=== PATIENT | female | born 1965 | race American Indian/Alaskan Native ===

== ENCOUNTER 2017-01-20 12:34 | Inpatient (IN) | payer OTHER ==
[2017-01-20 13:16] LABS: Basophils % (Auto) 0.9 % (0.0-1.8); Eosinophils % (Auto) 2.6 % (0.0-4.3); Hematocrit 40.4 % (30.3-42.9); Hemoglobin 13.6 gm/dl (10.1-14.3); Mean Corpuscular HGB Conc 34 % (30-34); Mean Corpuscular Hemoglobin 28 pg (28-32); Mean Corpuscular Volume 83 fl (79-97); Platelet Count 334 K/mm3 (140-440); Red Blood Count 4.88 M/mm3 (3.65-5.03); Red Cell Distribution Width 14.6 % (13.2-15.2); White Blood Count 6.3 K/mm3 (4.5-11.0)
[2017-01-20 13:26] LABS: INR 0.95 (0.87-1.13)
[2017-01-20 13:34] LABS: Anion Gap 16 mmol/L; BUN/Creatinine Ratio 18.33; Blood Urea Nitrogen 11 mg/dL (7-17); Calcium 9.3 mg/dL (8.4-10.2); Carbon Dioxide 30 mmol/L (22-30); Chloride 96.2 mmol/L (98-107); Glucose 288 mg/dL (65-100); Potassium 3.8 mmol/L (3.6-5.0); Sodium 138 mmol/L (137-145)
[2017-01-20 13:56] LABS: Partial Thromboplastin Time 26.5 Sec. (24.2-36.6)
--- NOTE | 2017-01-20 16:05 | XRay Report ---
CHEST 2 VIEWS INDICATION: Chest pain. COMPARISON: None similar. FINDINGS: PA and lateral chest radiographs demonstrate normal cardiomediastinal silhouette and clear lungs, given the inspiration. Mild mid thoracic spine degenerative spurring. Possible cholecystectomy clips. Right hemidiaphragm slightly elevated. CONCLUSION: No acute disease in the chest. Thank you for the opportunity to participate in this patient's care.
[2017-01-20] MEDS ORDERED: TYLENOL PO ONE (18:17)
--- NOTE | 2017-01-21 02:05 | Emergency Department Report ---
ED Chest Pain HPI - General Chief Complaint: Chest Pain Stated Complaint: CHEST PAIN Time Seen by Provider: 01/21/17 01:35 Source: patient Mode of arrival: Ambulatory Limitations: No Limitations - History of Present Illness Initial Comments: 51-year-old female with a past medical history CAD with stent 3 placed in 2011 and hypertension presents to the hospital with complaints of left-sided chest pain 5 days. Symptoms started after to date. Of vomiting and by mouth intolerance. Patient states she ate some bad food. She denies abdominal pain or diarrhea. Pain is left upper portion of the chest and radiates to left shoulder and described as a spasm type of feeling. Pain is rated 8/10 intensity without any specific aggravating or alleviating factors. Patient denies shortness of breath or diaphoresis, calf tenderness, or edema. Patient states when she was diagnosed with CAD requiring stents and 2011 her primary symptoms were fatigue and diaphoresis. Patient came to the ER today because she was experiencing generalized weakness and fatigue. 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 [place] Severity scale (0 -10): 8 - Related Data Home Medications Medication Instructions Recorded Confirmed Last Taken Atenolol/Chlorthalidone [Tenoretic 1 tab PO QDAY 05/11/15 05/11/15 05/11/15 100-25] Metoprolol [Lopressor TAB] 50 mg PO BID 05/11/15 05/11/15 05/11/15 Simvastatin [Zocor TAB] 20 mg PO QHS 05/11/15 05/11/15 Unknown amLODIPine [Norvasc] 5 mg PO DAILY 05/11/15 05/11/15 05/11/15 Previous Rx's Medication Instructions Recorded Last Taken Type Cyclobenzaprine [Flexeril 10 MG 10 mg PO TID PRN #30 tablet 05/12/15 Unknown Rx TAB] HYDROcodone/APAP 5-325 [Muir 1 each PO Q6HR PRN #20 tablet 05/12/15 Unknown Rx 5/325] Ibuprofen [Motrin] 600 mg PO Q8H PRN #50 tablet 05/12/15 Unknown Rx Allergies Allergy/AdvReac Type Severity Reaction Status Date / Time No Known Allergies Allergy Verified 05/12/15 06:16 Heart Score - HEART Score History: Slightly suspicious EKG: Normal Age: 45-65 Risk factors: > 3 risk factors or hx of atherosclerotic disease Troponin: < normal limit HEART Score: 3 ED Review of Systems ROS: Stated complaint: CHEST PAIN Other details as noted in HPI Comment: All other systems reviewed and negative Other: Constitutional: No fevers chills Eyes: No eye pain visual changes or discharge ENT: No ear pain or throat pain Neck: Denies pain Respiratory: Denies cough wheezing shortness of breath Cardiovascular: Denies palpitations, syncope GI: Denies abdominal pain, diarrhea : Denies dysuria Musculoskeletal: Denies back pain, joint swelling Skin: Denies rash, lesions, erythema Neurologic: Denies headache, numbness, weakness Psychiatric: Denies suicidal ideation, hallucinations ED Past Medical Hx - Past Medical History Previous Medical History?: Yes Hx Hypertension: Yes Hx Heart Attack/AMI: Yes (3 stents 2011) - Surgical History Past Surgical History?: Yes Hx Cholecystectomy: Yes Additional Surgical History: Stents 2011 PCI - Social History Smoking Status: Never Smoker Substance Use Type: None - Medications Home Medications: Home Medications Medication Instructions Recorded Confirmed Last Taken Type Atenolol/Chlorthalidone [Tenoretic 1 tab PO QDAY 05/11/15 05/11/15 05/11/15 History 100-25] Metoprolol [Lopressor TAB] 50 mg PO BID 05/11/15 05/11/15 05/11/15 History Simvastatin [Zocor TAB] 20 mg PO QHS 05/11/15 05/11/15 Unknown History amLODIPine [Norvasc] 5 mg PO DAILY 05/11/15 05/11/15 05/11/15 History Cyclobenzaprine [Flexeril 10 MG 10 mg PO TID PRN #30 tablet 05/12/15 Unknown Rx TAB] HYDROcodone/APAP 5-325 [[place] 1 each PO Q6HR PRN #20 tablet 05/12/15 Unknown Rx 5/325] Ibuprofen [Motrin] 600 mg PO Q8H PRN #50 tablet 05/12/15 Unknown Rx ED Physical Exam - General Limitations: No Limitations - Other Other exam information: General: No limitations, patient is alert in no acute distress Head exam: Atraumatic, normocephalic Eyes exam: Normal appearance, pupils equal reactive to light, extraocular movements intact ENT: Moist mucous membrane, normal oropharynx Neck exam: Normal inspection, full range of motion, no meningismus nontender Respiratory exam: Clear to auscultation bilateral, no wheezes, rales, crackles Cardiovascular: Normal rate and rhythm, normal heart sounds, chest wall nontender Abdomen: Soft, nondistended, and nontender, with normal bowel sounds, no rebound, or guarding Extremity: Full range of motion normal inspection no deformity Back: Normal Inspection, full range of motion, no tenderness Neurologic: Alert, oriented x3, cranial nerves intact, no motor or sensory deficit Psychiatric: normal affect, normal mood Skin: Warm, dry, intact ED Course Vital Signs 01/20/17 01/20/17 01/20/17 12:45 18:20 20:14 Temperature 98.5 F Pulse Rate 73 Respiratory 16 18 Rate Blood Pressure 161/101 O2 Sat by Pulse 100 99 Oximetry 01/20/17 01/20/17 01/20/17 20:21 20:30 20:41 Temperature Pulse Rate 54 L 51 L 55 L Respiratory 17 17 15 Rate Blood Pressure 157/80 137/81 137/81 O2 Sat by Pulse 98 99 99 Oximetry 01/20/17 01/20/17 01/20/17 20:51 21:00 21:10 Temperature 97.8 F Pulse Rate 53 L 48 L 57 L Respiratory 15 17 15 Rate Blood Pressure 137/81 137/81 139/89 O2 Sat by Pulse 100 97 99 Oximetry 01/20/17 01/20/17 01/20/17 21:21 21:30 21:41 Temperature Pulse Rate 54 L 67 65 Respiratory 19 19 19 Rate Blood Pressure 139/89 152/86 152/86 O2 Sat by Pulse 99 100 99 Oximetry 01/20/17 01/20/17 01/20/17 21:51 22:00 22:11 Temperature Pulse Rate 58 L 56 L 58 L Respiratory 16 20 17 Rate Blood Pressure 152/86 140/77 140/77 O2 Sat by Pulse 99 97 98 Oximetry 01/20/17 01/20/17 01/20/17 22:20 22:30 22:41 Temperature Pulse Rate 57 L 55 L 54 L Respiratory 17 18 16 Rate Blood Pressure 139/89 141/82 141/82 O2 Sat by Pulse 99 98 99 Oximetry 01/20/17 01/20/17 01/20/17 22:51 23:00 23:11 Temperature Pulse Rate 56 L 57 L 75 Respiratory 25 H 18 15 Rate Blood Pressure 141/82 134/80 134/80 O2 Sat by Pulse 97 96 98 Oximetry 01/20/17 01/20/17 01/21/17 23:35 23:56 00:00 Temperature Pulse Rate Respiratory Rate Blood Pressure 134/80 134/80 134/80 O2 Sat by Pulse 87 Oximetry 01/21/17 00:21 Temperature Pulse Rate Respiratory Rate Blood Pressure 134/80 O2 Sat by Pulse Oximetry - Reevaluation(s) Reevaluation #1: 01/21/17 02:16 Zofran, Toradol, and normal saline ordered. Insulin also ordered due to hyperglycemia 01/21/17 02:23 Insulin also ordered due to hyperglycemia. Hemoglobin A1c pending LOLIS score - Lolis Score Age > 65: (0) No Aspirin use within the Past 7 Days: (1) Yes 3 or more CAD Risk Factors: (1) Yes 2 or more Angina events in past 24 hrs: (1) Yes Known CAD with more than 50% Stenosis: (1) Yes Elevated Cardiac Markers: (0) No ST Deviation Greater than 0.5mm: (0) No LOLIS Score: 4 ED Medical Decision Making - Lab Data Result diagrams: 01/20/17 13:05 01/20/17 13:05 Lab Results 01/20/17 01/20/17 01/20/17 Range/Units 13:05 13:05 13:05 WBC 6.3 (4.5-11.0) K/mm3 RBC 4.88 (3.65-5.03) M/mm3 Hgb 13.6 (10.1-14.3) gm/dl Hct 40.4 (30.3-42.9) % MCV 83 (79-97) fl MCH 28 (28-32) pg MCHC 34 (30-34) % RDW 14.6 (13.2-15.2) % Plt Count 334 (140-440) K/mm3 Lymph % (Auto) 47.4 H (13.4-35.0) % [place] % (Auto) 5.9 (0.0-7.3) % Eos % (Auto) 2.6 (0.0-4.3) % Baso % (Auto) 0.9 (0.0-1.8) % Lymph # 3.0 (1.2-5.4) K/mm3 [place] # 0.4 (0.0-0.8) K/mm3 Eos # 0.2 (0.0-0.4) K/mm3 Baso # 0.1 (0.0-0.1) K/mm3 Seg Neutrophils % 43.2 (40.0-70.0) % Seg Neutrophils # 2.7 (1.8-7.7) K/mm3 PT 12.6 (12.2-14.9) Sec. INR 0.95 (0.87-1.13) APTT 26.5 (24.2-36.6) Sec. Sodium 138 (137-145) mmol/L Potassium 3.8 (3.6-5.0) mmol/L Chloride 96.2 L (98-107) mmol/L Carbon Dioxide 30 (22-30) mmol/L Anion Gap 16 mmol/L BUN 11 (7-17) mg/dL Creatinine 0.6 L (0.7-1.2) mg/dL Estimated GFR > 60 ml/min BUN/Creatinine Ratio 18.33 % Glucose 288 H (65-100) mg/dL Calcium 9.3 (8.4-10.2) mg/dL Troponin T < 0.010 (0.00-0.029) ng/mL HCG, Qual (Negative) 01/20/17 01/20/17 01/20/17 Range/Units 13:05 16:38 19:55 WBC (4.5-11.0) K/mm3 RBC (3.65-5.03) M/mm3 Hgb (10.1-14.3) gm/dl Hct (30.3-42.9) % MCV (79-97) fl MCH (28-32) pg MCHC (30-34) % RDW (13.2-15.2) % Plt Count (140-440) K/mm3 Lymph % (Auto) (13.4-35.0) % [place] % (Auto) (0.0-7.3) % Eos % (Auto) (0.0-4.3) % Baso % (Auto) (0.0-1.8) % Lymph # (1.2-5.4) K/mm3 [place] # (0.0-0.8) K/mm3 Eos # (0.0-0.4) K/mm3 Baso # (0.0-0.1) K/mm3 Seg Neutrophils % (40.0-70.0) % Seg Neutrophils # (1.8-7.7) K/mm3 PT (12.2-14.9) Sec. INR (0.87-1.13) APTT (24.2-36.6) Sec. Sodium (137-145) mmol/L Potassium (3.6-5.0) mmol/L Chloride (98-107) mmol/L Carbon Dioxide (22-30) mmol/L Anion Gap mmol/L BUN (7-17) mg/dL Creatinine (0.7-1.2) mg/dL Estimated GFR ml/min BUN/Creatinine Ratio % Glucose (65-100) mg/dL Calcium (8.4-10.2) mg/dL Troponin T < 0.010 < 0.010 (0.00-0.029) ng/mL HCG, Qual Negative (Negative) - EKG Data -: EKG Interpreted by Me (nsr rate 65, LVH) - EKG Data When compared to previous EKG there are: no significant change (compared to 11/03) - Radiology Data Radiology results: image reviewed (cxr: naf) - Medical Decision Making Clinically patient's pain appears to be secondary to muscle spasm however pain is not reproducible on palpation patient has several cardiac risk factors. Patient admitted to the hospital for further monitoring and stress test. Patient also has elevated glucose. Hemoglobin A1c ordered and pending at disposition. - Differential Diagnosis GERD, ID, atypical chest pain, muscle spasm Critical Care Time: No Critical care attestation.: If time is entered above; I have spent that time in minutes in the direct care of this critically ill patient, excluding procedure time. ED Disposition Clinical Impression: Chest pain, Vomiting, Hx of heart artery stent, Elevated glucose Disposition: OP ADMIT IP TO THIS HOSP Is pt being admited?: Yes Does the pt Need Aspirin: No Time of Disposition: 02:10 (DR ochoa/hosp)
[2017-01-21] MEDS ORDERED: TORADOL IV ONE (02:12)
[2017-01-21] MEDS ORDERED: NACL 0.9% 1000 ML 1,000 ML IV ONE (02:12)
[2017-01-21] MEDS ORDERED: ZOFRAN IV ONE (02:12)
[2017-01-21] MEDS ORDERED: TYLENOL PO PRN (08:25)
[2017-01-21] MEDS ORDERED: MILK OF MAGNESIA PO PRN (08:25)
[2017-01-21] MEDS ORDERED: ZOFRAN IV PRN (08:25)
[2017-01-21] MEDS ORDERED: DULCOLAX PR PRN (08:25)
[2017-01-21] MEDS ORDERED: LEXISCAN IV ONE ×2 (08:44→08:46)
[2017-01-21] MEDS ORDERED: NOVOLOG SUB-Q SCH (10:00)
[2017-01-21] MEDS: HCTZ PO SCH (11:52)
[2017-01-21] MEDS: COZAAR PO SCH (11:52)
[2017-01-21] MEDS: LOPRESSOR PO SCH ×2 (11:53→22:23)
[2017-01-21] MEDS: NORVASC PO SCH (11:53)
--- NOTE | 2017-01-21 12:27 | Consultation ---
History of Present Illness Consult date: 01/21/17 Consult reason: chest pain History of present illness: 51 YO woman with h/o htn, DM, and CAD s/p PCI in 2011 who presented to ED with episodes of left sided pressure type chest pain with associated dyspnea and diaphoresis. She reports symptoms initially started several days ago after she developed dyspepsia and vomiting. Chest pain has persisted even after dyspepsia has resolved. She has not had any palpitations, syncope, or pre- syncope. She is normally followed by a medical csr in [facility]. She does not think she has had coronary angiogram since her PCI in 2011. ECG today reveals sinus bradycardia at 55 bpm with borderline LVH. GA has been ruled out with negative cardiac enzymes. MPI today preliminarily reveals reversible inferior perfusion defect. Past History Past Medical History: CAD, diabetes, hypertension, hyperlipidemia Past Surgical History: PTCA Social history: denies: smoking, alcohol abuse Family history: no significant family history Medications and Allergies Allergies Allergy/AdvReac Type Severity Reaction Status Date / Time No Known Allergies Allergy Verified 05/12/15 06:16 Home Medications Medication Instructions Recorded Confirmed Last Taken Type Metoprolol [Lopressor TAB] 50 mg PO BID 05/11/15 01/21/17 05/11/15 History amLODIPine [Norvasc] 10 mg PO DAILY 05/11/15 01/21/17 05/11/15 History AtorvaSTATin [Lipitor] 20 mg PO QHS 01/21/17 01/21/17 Unknown History Losartan/Hydrochlorothiazide 1 each PO DAILY 01/21/17 01/21/17 Unknown History [Losartan-Hctz 100-25 mg Tab] Active Meds: Active Medications Acetaminophen (Tylenol) 650 mg PO Q4H PRN PRN Reason: Pain MILD(1-3)/Fever >100.5/SNOW Amlodipine Besylate (Norvasc) 10 mg PO DAILY [facility] Last Admin: 01/21/17 11:53 Dose: 10 mg Atorvastatin Calcium (Lipitor) 20 mg PO QHS [facility] Bisacodyl (Dulcolax) 10 mg PA QDAY PRN PRN Reason: Constipation unrelieved by MOM Heparin Sodium (Porcine) (Heparin) 5,000 unit SUB-Q Q8HR [facility] Hydrochlorothiazide (Hctz) 12.5 mg PO DAILY [facility] Last Admin: 01/21/17 11:52 Dose: 12.5 mg Sodium Chloride (Nacl 0.45% 1000 Ml) 1,000 mls @ 75 mls/hr IV DIRECT [facility] Insulin Aspart (Novolog) 0 units SUB-Q ONCE [facility] PRN Reason: Protocol Losartan Potassium (Cozaar) 100 mg PO DAILY [facility] Last Admin: 01/21/17 11:52 Dose: 100 mg Magnesium Hydroxide (Milk Of Magnesia) 30 ml PO Q4H PRN PRN Reason: Constipation Metoprolol Tartrate (Lopressor) 50 mg PO BID [facility] Last Admin: 01/21/17 11:53 Dose: 50 mg Ondansetron HCl (Zofran) 4 mg IV Q8H PRN PRN Reason: N/V unrelieved by Reglan Review of Systems All systems: negative (per hpi) Physical Examination Vital Signs Temp Pulse Resp BP Pulse Ox 98.5 F 73 16 161/101 100 01/20/17 12:45 01/20/17 12:45 01/20/17 12:45 01/20/17 12:45 01/20/17 12:45 General appearance: no acute distress Neck: Positive: neck supple Cardiac: Positive: Reg Rate and Rhythm. Negative: Audible Murmur Lungs: Positive: clear to auscultation Neuro: Positive: Grossly Intact Abdomen: Positive: Soft, Active Bowel Sounds Extremities: Absent: edema Results 01/20/17 13:05 01/20/17 13:05 Assessment and Plan Chest pain in patient with known CAD MPI preliminarily reveals reversible inferior perfusion defect. CAD s/p PCI in 2011 Htn DM Recommend: Continue current therapy including aspirin, statin and beta stephanie Plan for cardiac catheterization on monday.
--- NOTE | 2017-01-21 12:51 | History and Physical Report ---
History of Present Illness Date of examination: 01/21/17 Date of admission: 01/21/17 08:25 Chief complaint: Accelerated recurrent chest pain for the past 4-5 days History of present illness: 51-year-old -[place] female history of coronary artery disease status post PCI 4 years ago, history of hypertension and hyperlipidemia was seen in the emergency room with above complaint and she is admitted for further evaluation Symptoms started about 5 days ago when she had vomiting for 1 day which she suspected was due to some food related. Since then she has been having recurrent left-sided chest pain which lasts from a few seconds to a minute, mostly nonexertional, rash or leg pain and feels tired and exhausted after walking for a few minutes. She also complains of sweating and palpitations but denies any dizziness or loss of consciousness. She denies any fever or chills. Denies sore throat dysphagia nasal congestion or headaches Denies abdominal pain nausea hematemesis or melena She denies any dysuria or urinary incontinence or frequency Denies any stiff injury or seizure disorder She says she had SC 4 years ago and has 3 stents She normally sees M.D. in [place] She says she saw her PCP in [place] 3 months ago Past History Past Medical History: CAD, diabetes, hypertension, hyperlipidemia Past Surgical History: cholecystectomy, PTCA, Other (myomectomy for uterine fibroids) Social history: denies: smoking, alcohol abuse Family history: hypertension Medications and Allergies Allergies Allergy/AdvReac Type Severity Reaction Status Date / Time No Known Allergies Allergy Verified 05/12/15 06:16 Home Medications Medication Instructions Recorded Confirmed Last Taken Type Metoprolol [Lopressor TAB] 50 mg PO BID 05/11/15 01/21/17 05/11/15 History amLODIPine [Norvasc] 10 mg PO DAILY 05/11/15 01/21/17 05/11/15 History AtorvaSTATin [Lipitor] 20 mg PO QHS 01/21/17 01/21/17 Unknown History Losartan/Hydrochlorothiazide 1 each PO DAILY 01/21/17 01/21/17 Unknown History [Losartan-Hctz 100-25 mg Tab] Active Meds: Active Medications Acetaminophen (Tylenol) 650 mg PO Q4H PRN PRN Reason: Pain MILD(1-3)/Fever >100.5/SNOW Amlodipine Besylate (Norvasc) 10 mg PO DAILY [facility] Last Admin: 01/21/17 11:53 Dose: 10 mg Aspirin (Aspirin) 325 mg PO QDAY [facility] Atorvastatin Calcium (Lipitor) 20 mg PO QHS [facility] Bisacodyl (Dulcolax) 10 mg [place] QDAY PRN PRN Reason: Constipation unrelieved by [facility] Heparin Sodium (Porcine) (Heparin) 5,000 unit SUB-Q Q8HR [facility] Hydrochlorothiazide (Hctz) 12.5 mg PO DAILY [facility] Last Admin: 01/21/17 11:52 Dose: 12.5 mg Sodium Chloride (Nacl 0.45% 1000 Ml) 1,000 mls @ 75 mls/hr IV DIRECT [facility] Insulin Aspart (Novolog) 0 units SUB-Q ONCE [facility] PRN Reason: Protocol Losartan Potassium (Cozaar) 100 mg PO DAILY [facility] Last Admin: 01/21/17 11:52 Dose: 100 mg Magnesium Hydroxide (Milk Of Magnesia) 30 ml PO Q4H PRN PRN Reason: Constipation Metoprolol Tartrate (Lopressor) 50 mg PO BID [facility] Last Admin: 01/21/17 11:53 Dose: 50 mg Ondansetron HCl (Zofran) 4 mg IV Q8H PRN PRN Reason: N/V unrelieved by Reglan Review of Systems All systems: negative (as stated above in the history of present illness) Exam - Constitutional Vitals: Temp Pulse Resp BP Pulse Ox 97.8 F 60 18 156/92 100 01/20/17 21:10 01/21/17 11:52 01/21/17 06:00 01/21/17 11:52 01/21/17 06:00 General appearance: Present: no acute distress, well-nourished - EENT Eyes: Present: PERRL, EOM intact ENT: hearing intact, clear oral mucosa, no thrush - Neck Neck: Present: supple, normal ROM. Absent: masses or JVD - Respiratory Respiratory effort: normal Respiratory: bilateral: CTA - Cardiovascular Rhythm: regular Heart Sounds: Present: S1 & S2 - Extremities Extremities: No edema - Abdominal General gastrointestinal: Present: soft, non-tender. Absent: hepatomegaly, splenomegaly - Rectal Rectal Exam: deferred - Integumentary Integumentary: Present: clear - Musculoskeletal Musculoskeletal: strength equal bilaterally - Psychiatric Psychiatric: appropriate mood/affect - Neurologic Neurologic: CNII-XII intact, no focal deficits Results - Labs CBC & Chem 7: 01/20/17 13:05 01/20/17 13:05 Assessment and Plan - Patient Problems (1) Chest pain Current Visit: Yes Status: Acute Qualifiers: Chest pain type: C Ischemic chest pain type: stable angina pectoris Qualified Code(s): I20.8 - Other forms of angina pectoris Plan to address problem: SC was ruled out with 2 sets of troponin EKG shows sinus bradycardia with a heart rate of 57 bpm and borderline LVH Patient was scheduled for a Lexiscan just now I reviewed the Lexiscan results which showed reversible defect in the inferior portion Cardiology note reviewed and appreciated She is scheduled for left heart cath on Monday Continue aspirin, BB (2) Hypertension Current Visit: Yes Status: Chronic Qualifiers: Hypertension type: essential hypertension Qualified Code(s): I10 - Essential (primary) hypertension Plan to address problem: Home medications were reviewed and adjusted (3) Coronary artery disease Current Visit: Yes Status: Chronic Qualifiers: Coronary Disease-Associated Artery/Lesion type: [place] artery [place] vs. transplanted heart: [place] heart Associated angina: with stable angina Qualified Code(s): I25.118 - Atherosclerotic heart disease of [place] coronary artery with other forms of angina pectoris Plan to address problem: History of PCI four years ago with placement of 3 stents (4) Poorly controlled type 2 diabetes mellitus Current Visit: Yes Status: Chronic Plan to address problem: Although patient denies she has diabetes, this appears to be chronic with an A1c at 11. She states sometimes her sugars go up denies having diabetes or taking any medications Start on insulin sliding scale coverage for now (5) Hyperlipidemia Current Visit: Yes Status: Chronic Qualifiers: Hyperlipidemia type: mixed hyperlipidemia Qualified Code(s): E78.2 - Mixed hyperlipidemia Plan to address problem: Continue statin We will check her lipid profile
[2017-01-21] MEDS: HEPARIN SUB-Q SCH ×2 (14:11→22:23)
[2017-01-21] MEDS: NACL 0.45% 1000 ML 1,000 ML IV SCH (14:25)
--- NOTE | 2017-01-22 01:52 | Admit Criteria Form ---
Admission Criteria Documentation: CHEST PAIN Clinical Indications for Admission to Inpatient Care (Place 'X' for any and all applicable criteria): Admission is indicated for chest pain and ANY ONE of the following(1)(2)(3)(4)(5 ): [ ]I. Angina with acute coronary syndrome (Also use Myocardial Infarction or Angina guideline) [ ]II. Hemodynamic instability [ ]III. Angina needing acute intervention as indicated by ALL of the following( 11)(12): [ ]a) Unstable angina is present as indicated by angina that is ANY ONE of the following: [ ]i) New onset [ ]ii) Nocturnal [ ]iii) Prolonged at rest [ ]iv) Progressive [ ]b) Angina warrants acute intervention as indicated by ANY ONE of the following: [ ]i) Recurrent angina (e.g, not responding as previously to treatment) [ ]ii) Angina at rest or with low-level activities despite initial medical therapy [ ]iii) New or presumably new ST-segment depression on ECG [ ]iv) Signs or symptoms of heart failure (eg, dyspnea, pulmonary edema) [ ]v) New or worsening mitral regurgitation [ ]vi) Hemodynamic instability [ ]vii) Dangerous arrhythmia (eg, sustained ventricular tachycardia) [ ]viii) History of percutaneous coronary intervention within 6 months [ ]ix) History of coronary artery bypass graft surgery [ ]x) LOLIS risk score of 2 or greater[A] [ ]xi) History of Diabetes(14) [ ]xii) High-risk cardiac ischemia findings on noninvasive testing (e.g, echocardiogram, treadmill testing, nuclear scan) [ ]xiii) Chronic renal insufficiency (ie, estimated GFR less than 60 mL/min/1.732m) [ ]xiv) Left ventricular ejection fraction less than 40% [ ]IV. Evidence of PR (eg, cardiac biomarkers positive, ST-segment elevation on ECG) also use Myocardial Infarction Criteria Form. [ ]V. Pulmonary edema [ ]. Respiratory distress [ ]VII. Chest pain indicative of serious diagnosis other than coronary artery disease (eg, aortic dissection) [ ]VIII. Contraindications and/or Inappropriate clinical situations for Observational Care in patients with Chest Pain, when ANY ONE of the following is required: [ ]a) Patient with risk factor for pulmonary embolism, acute coronary syndrome and myocardial infarction (18) [ ]b) Patient with Pulmonary embolism require an average LOS of 4.3 days, therefore emergency department observation management is inappropriate 18,23 [ ]c) Painful condition/s in the elderly, have the highest rate of recidivism after emergency department observation management (10.8%) 20,21,22 [ ]d) Elevated cardiac biomarker requires intensive and exhaustive care (19) [X ]IX. General contraindications and/or Inappropriate clinical situations for Observational Care in patients with Chest Pain, when ANY ONE of the following is required: [X ]a) Prediction of prolongation of LOS based on ANY ONE of the following may be considered as a contraindication for observational care 2, 3, 4, 5, 6, 7, 8, 9, 10, 11 [ ]i) Age > 65 yrs. [ ]ii) Patient arriving by ambulance [ ]iii) Patient with high acuity [X ]iv) Patient requiring vital sign monitoring [X ]v) Patient on IV medication [ ]b) Systolic blood pressures 180mmHg 3,12 [ ]c) Patient with altered mental status including delirium and other alteration of consciousness, (3) [ ]d) Patient whose discharge disposition will be to a penitentiary home or rehabilitation home should not be managed in Emergency Department Observation Unit. CMS rule requires 3 days hospital stay before such placement. 3,13 [ ]e) Patient with failure to thrive due to broad array of etiologies 3,16,17 [ ]f) Inability to ambulate 3,14 Extended stay beyond goal length of stay may be needed for (1)(28): [ ]a) Specific condition diagnosed after evaluation (eg, pulmonary embolism, aortic dissection) [ ]b) Unstable angina [ ]c) Continued suspicion of acute coronary syndrome with inability to complete needed cardiac evaluation (eg, patient clinically unable to undergo stress testing) [ ]d) Myocardial infarction (Contents from ANGINA and CHEST PAIN clinical indications for admission to inpatient care have been integrated in this form) The original [employer] content created by [employer] has been revised. The portions of the content which have been revised are identified through the use of italic text or in bold, and [email or web address] has neither reviewed nor approved the modified material. All other unmodified content is copyright [employer]. Please see references footnoted in the original [facility] edition 2016 Admission Criteria Met: Yes
[2017-01-22] MEDS: NACL 0.45% 1000 ML 1,000 ML IV SCH (06:09)
[2017-01-22] MEDS: HEPARIN SUB-Q SCH ×3 (06:09→22:40)
[2017-01-22] MEDS: COZAAR PO SCH (11:53)
[2017-01-22] MEDS: NORVASC PO SCH (11:53)
[2017-01-22] MEDS: ASPIRIN PO SCH (11:54)
[2017-01-22] MEDS: LOPRESSOR PO SCH ×2 (11:54→22:40)
[2017-01-22] MEDS: HCTZ PO SCH (11:54)
--- NOTE | 2017-01-22 12:30 | Progress Note ---
Assessment and Plan Chest pain in patient with known CAD MPI preliminarily reveals reversible inferior perfusion defect. CAD s/p PCI in 2011 Htn DM Recommend: Continue current therapy including aspirin, statin and beta stephanie Plan for cardiac catheterization on monday. Subjective Date of service: 01/22/17 Interval history: No cardiac complaints. NO further chest pain Objective Vital Signs Temp Pulse Pulse Pulse Pulse Resp BP 01/22/17 09:57 98.3 F 63 63 63 20 01/22/17 04:51 98.2 F 60 60 60 20 01/22/17 01:05 98.1 F 61 20 01/22/17 01:00 60 01/21/17 22:23 60 139/89 01/21/17 20:26 98.7 F 60 20 01/21/17 18:13 98.8 F 69 20 01/21/17 15:40 57 L 20 BP BP Pulse Ox 01/22/17 09:57 129/77 97 01/22/17 04:51 161/92 99 01/22/17 01:05 165/94 97 01/22/17 01:00 01/21/17 22:23 01/21/17 20:26 139/89 99 01/21/17 18:13 156/92 95 01/21/17 15:40 159/95 98 - Physical Examination Neck: Positive: neck supple Cardiac: Positive: Reg Rate and Rhythm Lungs: Positive: clear to auscultation Neuro: Positive: Grossly Intact Abdomen: Positive: Soft, Active Bowel Sounds Extremities: Absent: edema - Labs and Meds Lipids 01/22/17 Range/Units 06:37 Triglycerides 192 H (2-149) mg/dL Cholesterol 141 (50-199) mg/dL HDL Cholesterol 35 L (40-59) mg/dL Cholesterol/HDL Ratio 4.02 %
[2017-01-22] MEDS ORDERED: NACL 0.9% 500 ML 500 ML IV SCH (13:00)
--- NOTE | 2017-01-22 16:11 | Progress Note ---
Assessment and Plan Assessment and plan: 51-year-old -[place] female history of coronary artery disease status post PCI 4 years ago, history of hypertension and hyperlipidemia was seen in the emergency room with above with chest pain. Per the patient symptoms started about 5 days ago with nausea and 1 day episode of vomiting. Chest pain is not exertional. He feels tired and exhausted but describes no abdominal pain. She reports recent dental infection. She also reports history of RI 4 years ago with 3 stents. She normally follows with her doctors in [place] was supposed to months ago. Patient on admission had a stress test which revealed stable inferior perfusion defect. Follow test reveals a hemoglobin A1c of 11 was a new diabetic diagnosis for this patient. * Chest pain in a patient with known CAD * Diabetes mellitus A1c of 11.5 * CAD status post PCI in 2011 * Hypertension * Dyslipidemia Plan * cardiac cath planned for the AM * Continue asa, BB, ARB, CCB, statin therapy * Will add 70/30 12 units BID and continue sliding scale coverage. Recommended podiatry and yearly eye exam * Follow with Dentist on discharge * DVT/GI prophy History Interval history: Patient seen and examined today reports improvement of her symptoms. Denies any chest pain, nausea vomiting or diarrhea. No other adverse event reported some staff. Hospitalist Physical - Physical exam Narrative exam: VITAL SIGNS: Reviewed. GENERAL: The patient appeared well nourished and normally developed. Vital signs as documented. HEAD: No signs of head trauma. EYES: Pupils are equal. Extraocular motions intact. EARS: Hearing grossly intact. MOUTH: Oropharynx is normal. NECK: No adenopathy, no JVD. CHEST: Chest with clear breath sounds bilaterally. No wheezes, rales, or rhonchi. CARDIAC: Regular rate and rhythm. S1 and S2, without murmurs, gallops, or rubs. VASCULAR: No Edema. Peripheral pulses normal and equal in all extremities. ABDOMEN: Soft, without detectable tenderness. No sign of distention. No rebound or guarding, and no masses palpated. Bowel Sounds normal. MUSCULOSKELETAL: Good range of motion of all major joints. Extremities without clubbing, cyanosis or edema. NEUROLOGIC EXAM: Alert and oriented x 3. No focal sensory or strength deficits. Speech normal. Follows commands. PSYCHIATRIC: Mood normal. SKIN: No rash or lesions. - Constitutional Vitals: Temp Pulse Resp BP Pulse Ox 98.3 F 63 20 129/77 97 01/22/17 09:57 01/22/17 09:57 01/22/17 09:57 01/22/17 09:57 01/22/17 09:57 General appearance: Present: no acute distress, well-nourished Results - Labs CBC & Chem 7: 01/20/17 13:05 01/20/17 13:05 Labs: Laboratory Last Values WBC 6.3 K/mm3 (4.5-11.0) 01/20/17 13:05 RBC 4.88 M/mm3 (3.65-5.03) 01/20/17 13:05 Hgb 13.6 gm/dl (10.1-14.3) 01/20/17 13:05 Hct 40.4 % (30.3-42.9) 01/20/17 13:05 MCV 83 fl (79-97) 01/20/17 13:05 MCH 28 pg (28-32) 01/20/17 13:05 MCHC 34 % (30-34) 01/20/17 13:05 RDW 14.6 % (13.2-15.2) 01/20/17 13:05 Plt Count 334 K/mm3 (140-440) 01/20/17 13:05 Lymph % (Auto) 47.4 % (13.4-35.0) H 01/20/17 13:05 Leake % (Auto) 5.9 % (0.0-7.3) 01/20/17 13:05 Eos % (Auto) 2.6 % (0.0-4.3) 01/20/17 13:05 Baso % (Auto) 0.9 % (0.0-1.8) 01/20/17 13:05 Lymph # 3.0 K/mm3 (1.2-5.4) 01/20/17 13:05 [place] # 0.4 K/mm3 (0.0-0.8) 01/20/17 13:05 Eos # 0.2 K/mm3 (0.0-0.4) 01/20/17 13:05 Baso # 0.1 K/mm3 (0.0-0.1) 01/20/17 13:05 Seg Neutrophils % 43.2 % (40.0-70.0) 01/20/17 13:05 Seg Neutrophils # 2.7 K/mm3 (1.8-7.7) 01/20/17 13:05 PT 12.6 Sec. (12.2-14.9) 01/20/17 13:05 INR 0.95 (0.87-1.13) 01/20/17 13:05 APTT 26.5 Sec. (24.2-36.6) 01/20/17 13:05 Sodium 138 mmol/L (137-145) 01/20/17 13:05 Potassium 3.8 mmol/L (3.6-5.0) 01/20/17 13:05 Chloride 96.2 mmol/L (98-107) L 01/20/17 13:05 Carbon Dioxide 30 mmol/L (22-30) 01/20/17 13:05 Anion Gap 16 mmol/L 01/20/17 13:05 BUN 11 mg/dL (7-17) 01/20/17 13:05 Creatinine 0.6 mg/dL (0.7-1.2) L 01/20/17 13:05 Estimated GFR > 60 ml/min 01/20/17 13:05 BUN/Creatinine Ratio 18.33 % 01/20/17 13:05 Glucose 288 mg/dL (65-100) H 01/20/17 13:05 POC Glucose 255 (70-105) H 01/22/17 12:49 Hemoglobin A1c 11.5 % (4-6) H 01/21/17 02:15 Calcium 9.3 mg/dL (8.4-10.2) 01/20/17 13:05 Troponin T < 0.010 ng/mL (0.00-0.029) 01/20/17 19:55 Triglycerides 192 mg/dL (2-149) H 01/22/17 06:37 Cholesterol 141 mg/dL (50-199) 01/22/17 06:37 LDL Cholesterol Direct 68 mg/dL (50-130) 01/22/17 06:37 HDL Cholesterol 35 mg/dL (40-59) L 01/22/17 06:37 Cholesterol/HDL Ratio 4.02 % 01/22/17 06:37 HCG, Qual Negative (Negative) 01/20/17 13:05 - Imaging and Cardiology Chest x-ray: image reviewed (no acute pathology)
[2017-01-23] MEDS: HEPARIN SUB-Q SCH ×2 (06:05→14:37)
[2017-01-23 06:07] LABS: Basophils % (Auto) 0.8 % (0.0-1.8); Eosinophils % (Auto) 2.9 % (0.0-4.3); Hemoglobin 14.1 gm/dl (10.1-14.3); Mean Corpuscular HGB Conc 35 % (30-34); Mean Corpuscular Hemoglobin 29 pg (28-32); Mean Corpuscular Volume 83 fl (79-97); Platelet Count 351 K/mm3 (140-440); Red Blood Count 4.94 M/mm3 (3.65-5.03); Red Cell Distribution Width 14.9 % (13.2-15.2); White Blood Count 5.8 K/mm3 (4.5-11.0)
[2017-01-23 06:26] LABS: Anion Gap 18 mmol/L; BUN/Creatinine Ratio 18.33; Blood Urea Nitrogen 11 mg/dL (7-17); Calcium 8.7 mg/dL (8.4-10.2); Carbon Dioxide 25 mmol/L (22-30); Chloride 100.7 mmol/L (98-107); Glucose 267 mg/dL (65-100); Potassium 3.8 mmol/L (3.6-5.0); Sodium 140 mmol/L (137-145)
[2017-01-23] MEDS ORDERED: NACL 0.9% 500 ML 500 ML ONE (08:41)
[2017-01-23] MEDS ORDERED: HEPARIN/NS 5000 UNIT/500ML(CATH LAB) 1,000 ML IR ONE (10:10)
[2017-01-23] MEDS ORDERED: HEPARIN 10,000 UNITS/10 ML ONE (10:10)
[2017-01-23] MEDS ORDERED: XYLOCAINE 2% INFILTRATI ONE (10:11)
[2017-01-23] MEDS ORDERED: NITROGLYCERIN SYRINGE 0 ML ONE (10:11)
[2017-01-23] MEDS ORDERED: VERSED ONE (10:11)
[2017-01-23] MEDS: SUBLIMAZE ONE ×2 (10:44→10:51)
[2017-01-23] MEDS ORDERED: NACL 0.9% 500 ML 500 ML IV SCH (11:00)
[2017-01-23] MEDS ORDERED: ULTRAM PO PRN (11:25)
--- NOTE | 2017-01-23 11:45 | Discharge Summary ---
Providers - Providers Date of Admission: 01/21/17 08:25 Date of discharge: 01/23/17 Attending physician: JUAN RANDLE MD 01/23/17 11:25 Consult to Cardiac Rehabilitation [CONS] Routine Reason For Exam: Cardiac Rehab Evaluation Primary care physician: [employer] Hospitalization Condition: Stable Disposition: DC-01 TO HOME OR SELFCARE Time spent for discharge: 35 mins Exam - Constitutional Vitals: Temp Pulse Resp BP Pulse Ox 98.3 F 55 L 18 152/75 98 01/23/17 08:52 01/23/17 08:52 01/23/17 08:52 01/23/17 08:52 01/23/17 08:52 Plan Activity: advance as tolerated, fall precautions Diet: low fat, diabetic Special Instructions: record daily weights, record daily BP diary, record blood sugar diary Follow up with: PRIMARY MD JOSHUA [Primary Care Provider] - 7 Days LUH PRICE MD [Staff Physician] - 7 Days Prescriptions: Insulin NPH/Regular [NovoLIN 70/30] 15 unit SUB-Q BIDDIAB 30 Days ISOSORBIDE MONOnitrate [Imdur ER] 30 mg PO QDAY #30 tablet
[2017-01-23] MEDS: COZAAR PO SCH (11:59)
[2017-01-23] MEDS: ASPIRIN PO SCH (11:59)
[2017-01-23] MEDS ORDERED: IMDUR PO SCH (12:00)
[2017-01-23] MEDS ORDERED: NACL 0.9% 1000 ML 1,000 ML IV SCH (12:00)
[2017-01-23] MEDS: NORVASC PO SCH (12:00)
[2017-01-23] MEDS: HCTZ PO SCH (12:01)
[2017-01-23] MEDS: LOPRESSOR PO SCH (12:02)
--- NOTE | 2017-01-23 12:04 | Operative Report ---
Operative Report Operative Report: Cardiac catheterization report Date of procedure 01/23/2017 Reason for procedure: Patient's a 51-year-old woman who presented to the hospital with chest pain. She has a history of coronary artery disease, diabetes or hypertension. Several years ago, she underwent coronary stent placement in [facility]. On this current admission, she underwent a thallium stress test after a rule out protocol, which demonstrated a minimal-sized inferior defect, prompting the recommendation for cardiac catheterization. Procedure: Patient was prepped and draped in a sterile fashion after informed consent. Right femoral artery was entered using the Seldinger technique followed by placement of 5 Romanian sheath. Elective left and right conjugate was performed with Teddy catheters. A #4.5 left Teddy was used for left carotid angiography, and a #4 right Teddy for right carotid angiography. A pigtail catheter was then used for left ventricular angiography. Catheters were removed , sheaths removed and hemostasis achieved using an Angio-Seal device. Patient was returned to the postprocedure unit in stable condition. There were no consultations. Findings: Hemodynamics: Left ventricular end-diastolic pressure was 24, following coronary angiography. Ascending aorta pressure was 184/104. There was no significant pressure gradient on pullback across the aortic valve. Coronary angiography: Left main coronary artery was free of significant disease. The left anterior descending artery and its diagonal branches was a small caliber system that contained diffuse moderate atherosclerosis in its proximal, mid and distal segments. No focal severe lesions were noted in this system. The large, mid obtuse marginal branch of the circumflex artery was extensively stented. There was evidence of a prior stenting extending from the proximal, to the distal segments. The vessel was patent, and all the stented segments were widely patent, with no significant in-stent restenosis. Following the mid obtuse marginal, the AV groove circumflex terminated in a small to medium sized terminal obtuse marginal. There was a 50% stenosis leading to this small terminal branch. The right coronary artery was also a small caliber vessel, but was dominant. There was diffuse mild atherosclerosis of the proximal and mid segments. This vessel was completely occluded in its distal AV groove segment. This is a long segment of a chronic total occlusion, with faint collateralization of a small caliber PDA by right to right and [id number] collaterals. Left ventricular angiography: There was normal to hyperdynamic left ventricular systolic function, ejection fraction 65%. Notably, there was well-preserved wall motion of the left ventricular inferior segments. Conclusion: Coronary artery disease. Widely patent prior stents of the mid obtuse marginal branch of the circumflex artery. 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 Normal to hyperdynamic left ventricle systolic function, ejection fraction 65%. Recommendations: Medical therapy for small vessel disease of distal right coronary artery. Aggressive risk factor modification.
[2017-01-23 13:16] VITALS: BP 146/99
--- NOTE | 2017-01-23 14:26 | Progress Note ---
Assessment and Plan - Patient Problems (1) Chest pain Current Visit: Yes Status: Acute Qualifiers: Chest pain type: C Ischemic chest pain type: stable angina pectoris Qualified Code(s): I20.8 - Other forms of angina pectoris Plan to address problem: She underwent a cardiac catheterization today that revealed widely patent stents in the circumflex system, nonobstructive disease of the LAD system, but the right coronary artery was a small-caliber vessel that contained a long segment of chronic total occlusion of its distal segment. A small caliber posterior descending branch was filled by right to right and [id number] collaterals. There was normal left ventricle systolic function, ejection fraction 65%. We have recommended medical therapy for this small vessel disease of the distal right coronary artery, with the addition of isosorbide mononitrate to her regimen. Otherwise aggressive risk factor modification and continued medical therapy. Subjective Date of service: 01/23/17 Interval history: The patient is comfortable, no new cardiac complaints. She underwent a cardiac catheterization today that revealed widely patent stents in the circumflex system, nonobstructive disease of the LAD system, but the right coronary artery was a small-caliber vessel that contained a long segment of chronic total occlusion of its distal segment. A small caliber posterior descending branch was filled by right to right and [id number] collaterals. There was normal left ventricle systolic function, ejection fraction 65%. We have recommended medical therapy for this small vessel disease of the distal right coronary artery, with the addition of isosorbide mononitrate to her regimen. Otherwise aggressive risk factor modification and continued medical therapy. Objective Vital Signs Temp Pulse Pulse Pulse Pulse Resp BP 01/23/17 14:08 66 01/23/17 13:09 97.8 F 68 18 01/23/17 12:02 55 L 178/52 01/23/17 12:00 60 172/78 01/23/17 11:59 60 152/78 01/23/17 08:52 98.3 F 55 L 18 01/23/17 04:37 98.7 F 55 L 18 01/23/17 01:00 81 01/23/17 00:31 98.7 F 57 L 22 01/22/17 22:40 83 157/93 01/22/17 21:03 01/22/17 21:00 97.5 F L 83 21 01/22/17 20:58 01/22/17 17:42 97.9 F 58 L 58 L 58 L 20 BP Pulse Ox 01/23/17 14:08 01/23/17 13:09 146/99 97 01/23/17 12:02 01/23/17 12:00 01/23/17 11:59 01/23/17 08:52 152/75 98 01/23/17 04:37 134/75 99 01/23/17 01:00 01/23/17 00:31 142/80 93 01/22/17 22:40 01/22/17 21:03 99 01/22/17 21:00 158/97 96 01/22/17 20:58 99 01/22/17 17:42 144/69 100 - Physical Examination General: Appears Well, No Apparent Distress HEENT: Positive: PERRL Neck: Positive: neck supple Cardiac: Positive: Reg Rate and Rhythm Lungs: Positive: clear to auscultation Neuro: Positive: Grossly Intact Abdomen: Positive: Soft, Active Bowel Sounds Skin: Positive: Clear Extremities: Absent: edema - Labs and Meds Coagulation 01/23/17 Range/Units 05:10 APTT 32.6 (24.2-36.6) Sec. CBC 01/23/17 Range/Units 05:10 WBC 5.8 (4.5-11.0) K/mm3 RBC 4.94 (3.65-5.03) M/mm3 Hgb 14.1 (10.1-14.3) gm/dl Hct 41.0 (30.3-42.9) % Plt Count 351 (140-440) K/mm3 Lymph # 2.6 (1.2-5.4) K/mm3 [place] # 0.3 (0.0-0.8) K/mm3 Eos # 0.2 (0.0-0.4) K/mm3 Baso # 0.0 (0.0-0.1) K/mm3 Comprehensive Metabolic Panel 01/23/17 Range/Units 05:10 Sodium 140 (137-145) mmol/L Potassium 3.8 (3.6-5.0) mmol/L Chloride 100.7 (98-107) mmol/L Carbon Dioxide 25 (22-30) mmol/L BUN 11 (7-17) mg/dL Creatinine 0.6 L (0.7-1.2) mg/dL Glucose 267 H (65-100) mg/dL Calcium 8.7 (8.4-10.2) mg/dL
== END 2017-01-23 16:06 | disposition home or self-care (01) | DRG 287 ==
LOC: ED 12:34 → 4A 01-21 08:25
PROVIDERS: ADMIT Internal Medicine; ATTEND Internal Medicine
PROC: 4A023N7 Measurement of Cardiac Sampling and Pressure, Left Heart, Percutaneous Approach (ICD-10-PCS; principal; 2017-01-23)
PROC: B2151ZZ Fluoroscopy of Left Heart using Low Osmolar Contrast (ICD-10-PCS; 2017-01-23)
PROC: B2111ZZ Fluoroscopy of Multiple Coronary Arteries using Low Osmolar Contrast (ICD-10-PCS; 2017-01-23)
DX: I25.118 Atherosclerotic heart disease of native coronary artery with other forms of angina pectoris (principal); R07.9 Chest pain, unspecified; I10 Essential (primary) hypertension; I25.82 Chronic total occlusion of coronary artery; E78.2 Mixed hyperlipidemia; E11.65 Type 2 diabetes mellitus with hyperglycemia; Z90.49 Acquired absence of other specified parts of digestive tract; Z98.61 Coronary angioplasty status; Z82.49 Family history of ischemic heart disease and other diseases of the circulatory system; I25.2 Old myocardial infarction
CPT/HCPCS: 36415; 71020; 78452; 80048; 80061; 82962; 83036; 84484; 84703; 85025; 85610; 85730; 93005; 93010; 93017; 93458; 96361; 96372; 96374; 96375; A9270-GY; A9502; C1760; C1894; J1644; J1815; J1885; J2250; J2405; J2785; J3010; J7030; J7040; Q9967